=== PATIENT | female | born 1970 | race Hispanic/Latino ===

== ENCOUNTER → 2024-07-20 | Day surgery (SDC) | payer OTHER ==
[~2024-07-20] MED LIST: GLUCAGON FOR INJ 1 MG VIAL ONE; GLYCOPYRROLATE INJ 0.2 MG/ML VIAL ONE; HYOSCYAMINE SULFATE 0.5 MG/ML INJ ONE; PROPOFOL IV EMULSION 0 ML IV ONE; PROPOFOL IV EMULSION 100 ML IV ONE
[2024-07-20] MEDS: LACTATED RINGER'S 1,000 ML ONE (13:03)
[2024-07-20 15:30] VITALS: BP 134/96; PULSE 72; RESP 14; TEMP 97.4; O2SAT 97
== END | disposition home or self-care (01) ==
LOC: OR 12:35
PROVIDERS: ATTEND Internal Medicine Gastroenterology
DX: Z12.11 Encounter for screening for malignant neoplasm of colon (principal); D12.0 Benign neoplasm of cecum; K59.00 Constipation, unspecified; Z71.3 Dietary counseling and surveillance; E66.01 Morbid (severe) obesity due to excess calories; M06.9 Rheumatoid arthritis, unspecified; Z71.89 Other specified counseling; Z01.810 Encounter for preprocedural cardiovascular examination; Z68.39 Body mass index [BMI] 39.0-39.9, adult
CPT/HCPCS: 45385; 93005; J1610; J1980; J2704; J7121; 45378